=== PATIENT | female | born 1980 | race Caucasian/White ===

== ENCOUNTER 2020-03-11 23:13 | Observation (INO) | payer MEDICAID, SELFPAY ==
[2020-03-11 23:25] VITALS: BP 120/84; PULSE 91; RESP 18; TEMP 36.3; O2SAT 99; BMI 17.7
--- NOTE | 2020-03-11 23:29 | ED_ITS ---
HPI - Abdominal Pain General: Chief Complaint: Urogenital-Female Stated Complaint: bleeding Time Seen by Provider: 03/11/20 23:26 Source: patient Mode of arrival: ambulatory Limitations: no limitations History of Present Illness: HPI narrative: Madeline is a 39-year-old female who comes in complaining of vaginal bleeding after intercourse. She has lower abdominal cramping along with this. Patient states that she had a vaginal hysterectomy approximately 1 year ago. Her right ovary remains but that is all that she has left as far as gynecologic organs. Patient states that she is not had sex in approximately 2 months and had sex with a new boyfriend who is well and out . Patient denies any anal intercourse or instrumentation. Patient states the bleeding was significant and with the pain and nauseousness she felt she should be evaluated. Associated Symptoms: Denies chills, coffee ground emesis, constipation, GI cramping, diarrhea, dysuria, fever(s), heartburn, hematochezia, hematuria, hematemesis, melena, nausea, syncope and vomiting Review of Systems Const: Denies: fever(s), chills, body aches, fatigue, malaise or diaphoresis Eyes: Denies: change in vision, blurry vision, blind spots, photophobia, eye discharge or eye redness ENMT: Denies: throat pain, odynophagia, hoarseness, swelling of lips/tongue, oral sores, ear or mastoid pain, ear discharge, change in hearing or nasal discharge Card: Denies: chest pain, palpitations, irregular heart rhythm, edema, lightheadedness, syncope, pre-syncope, dyspnea on exertion or orthopnea Resp: Denies: dyspnea, productive cough, non-productive cough, wheezing, hemoptysis or chest congestion GI: Denies: abdominal pain, nausea, vomiting, hematemesis, coffee ground emesis, heartburn, diarrhea, constipation, GI cramping, hematochezia or melena : Reports: difficulty voiding and vaginal bleeding; Denies: flank pain, dysuria, urinary frequency, urinary urgency or hematuria Musc: Denies: neck pain, back pain, extremity pain, extremity swelling, joint pain, joint swelling, joint redness, joint warmth or joint stiffness Skin/Breast: Denies: rash, pruritus, erythema, skin tenderness or jaundice Neuro: Denies: headache(s), numbness in extremities, weakness in extremities, sensory changes, lack of coordination, difficulty walking, dizziness, vertigo, confusion, Slurred speech present or seizure-like activity [place]/Lymph: Denies: easy bruising, easy bleeding, petechiae, purpura or enlarged lymph nodes All/Imm: Denies: urticaria, throat swelling, tongue swelling, facial swelling or acute wheezing PFSH ED PFSH: Medical History Chronic back pain Chronic neck pain Surgical History H/O: hysterectomy S/P cholecystectomy Physical Exam Const: COMMON NORMALS: no acute distress, patient oriented x3, no limitations, healthy appearing and well nourished GENERAL APPEARANCE: cooperative, well kempt and well developed HENMT: COMMON NORMALS: normocephalic, atraumatic, external ears normal, EAC's normal and Normal external nose present HEAD & SCALP: normal to inspection, normocephalic and atraumatic FACE & SINUS: normal facial exam and face symmetric NOSE: Normal external nose present and Normal nares present EXTERNAL EAR: Yes external ears normal EXTERNAL AUDITORY CANAL: EAC's normal MOUTH: Normal oral and palatal mucosa present, lip normal and tongue normal Eye: COMMON NORMALS: Equal, round and reactive pupils present and conjunctivae normal GENERAL EYE: appearance normal, both eyes and all related structures ALIGNMENT: Yes alignment normal PERIORBITAL: periorbital findings normal EYELID: eyelids normal CONJUNCTIVA: Yes conjunctivae normal SCLERA: sclerae normal PUPIL: Yes Equal, round and reactive pupils present Neck/C-Spine: COMMON NORMALS: full ROM, no lymphadenopathy, supple, no meningeal signs and no JVD GENERAL: Yes normal visual inspection and Yes trachea midline Chest: COMMONS NORMALS: normal inspection of the chest and normal palpation of entire chest wall Resp: COMMON NORMALS: normal respiratory effort, No retractions and No use of accessory muscles EFFORT & INSPECTION: Yes able to speak in complete sentences and Yes symmetric chest movement AUSCULTATION: no crackles, no rales, no rhonchi and no wheezes Cardio: COMMON NORMALS: no JVD, regular rate, regular rhythm, S1 normal heart sound present and S2 normal heart sound present RATE: regular rate RHYTHM: regular rhythm HEART SOUNDS: S1 normal heart sound present, S2 normal heart sound present, no click, no gallops, no murmurs, no rubs and abnormal split S2 GI: COMMON NORMALS: Soft to palpation and No hepatosplenomegaly present PALPATION: Yes Soft to palpation, No Tenderness to palpation present (GI), No Guarding due to palpation present (GI), No Rigid due to palpation, Yes No hepatosplenomegaly present, Yes Hernia present, No Palpable mass present and No Pulsatile mass present : COMMON NORMALS: Yes no CVA tenderness BLADDER/KIDNEY EXAM: Yes no CVA tenderness EXTERNAL FEMALE EXAM: Yes Hernia present and Yes other (Exam deferred to Dr. Alberto) Back/Pelvis: COMMON NORMALS: no CVA tenderness, thoracic and lumbar spine normal to inspection, no thoracic nor lumbar tenderness and thoraco-lumbar ROM normal Extremity: COMMON NORMALS: normal to inspection, full ROM, capillary refill normal, no joint enlargement, no clubbing, cyanosis or edema and no calf tenderness Neuro: COMMON NORMALS: patient oriented x3, CN's II-XII intact bilaterally, moves all extremities, no focal motor deficits and no sensory deficits noted MENINGEAL SIGNS: Yes no meningeal signs SPEECH: speech normal Psych: COMMON NORMALS: mental status grossly normal, Normal thought process present, cooperative, normal affect, speech normal and activity/motor behavior normal APPEARANCE: Yes well kempt SPEECH: Yes normal speech THOUGHT PROCESS: Normal thought process present Skin: COMMON NORMALS: no rashes or lesions noted, turgor normal, no jaundice, no petechiae and no mottling GENERAL SKIN EXAM: no rashes or lesions noted and turgor normal Course Vital Signs: Vital signs: Vital Signs Temperature 97.4 F L 03/11/20 23:25 Pulse Rate 86 03/12/20 01:03 Respiratory Rate 16 03/12/20 01:14 Blood Pressure 128/78 03/12/20 01:14 Pulse Oximetry 98 03/12/20 01:14 MDM - Abdominal Pain MDM Narrative: Medical decision making narrative: 299 -CT reviewed with Dr. Alberto. He will come to see the patient in the ER. Lab Data: Attestation: I reviewed the patient's lab results. Labs: Lab Results 03/11/20 03/11/20 03/11/20 Range/Units 23:40 23:40 23:40 WBC 26.1 H (4.0-10.0) 10^3/ uL RBC 4.34 (4.1-5.3) 10^6/u L Hgb 13.4 (11.5-15.3) g/dL Hct 40.5 (37.0-47.0) % MCV 93.3 (81-99) fL MCH 30.9 (28.0-34.0) pg MCHC 33.1 (30.0-36.0) g/dL RDW 13.0 (12.1-15.1) % Plt Count 366 (130-400) 10^3/c mm MPV 10.1 (7.4-10.4) fL Neut % (Auto) 80.6 % Lymph % (Auto) 10.7 % [place] % (Auto) 8.0 % Eos % (Auto) 0.1 % Baso % (Auto) 0.3 % Neut # (Auto) 21.06 H (1.8-7.7) 10^3/u L Lymph # (Auto) 2.8 (0.8-4.8) 10^3/u L [place] # (Auto) 2.1 H (0.2-0.9) 10^3/u L Eos # (Auto) 0.0 (0.0-0.8) 10^3/u L Baso # (Auto) 0.1 (0.0-0.1) 10^3/u L Nucleated RBC % (a uto) 0 % Nucleated RBCs # 0.0 /100WBC PT 13.80 H (10.5-13.3) SECO NDS INR 1.03 (0.8-1.2) Sodium 139 (136-145) mmol/L Potassium 3.8 (3.5-5.1) mmol/L Chloride 104 (98-107) mmol/L Carbon Dioxide 23 (22-29) mmol/L Anion Gap 15.8 (5-19) BUN 11 (6-20) mg/dL Creatinine 1.0 H (0.5-0.9) mg/dL GFR Calculation 61.1 L (90-130) mL/min Glucose 122 H (65-115) mg/dL Calculated Osmolal ity 285 (285-295) mOsm/k g Lactic Acid (0.5-2.2) mmol/L Calcium 10.4 (8.5-10.5) mg/dL Total Bilirubin 0.3 (0.15-1.2) mg/dL AST 16 (0-32) U/L ALT 10 (0-33) U/L Alkaline Phosphata se 83 (35-105) IU/L Total Protein 7.3 (6.6-8.7) g/dL Albumin 4.8 (3.5-5.2) g/dL Globulin 2.5 (1.3-4.6) g/dL 03/12/20 Range/Units 00:33 WBC (4.0-10.0) 10^3/ uL RBC (4.1-5.3) 10^6/u L Hgb (11.5-15.3) g/dL Hct (37.0-47.0) % MCV (81-99) fL MCH (28.0-34.0) pg MCHC (30.0-36.0) g/dL RDW (12.1-15.1) % Plt Count (130-400) 10^3/c mm MPV (7.4-10.4) fL Neut % (Auto) % Lymph % (Auto) % [place] % (Auto) % Eos % (Auto) % Baso % (Auto) % Neut # (Auto) (1.8-7.7) 10^3/u L Lymph # (Auto) (0.8-4.8) 10^3/u L [place] # (Auto) (0.2-0.9) 10^3/u L Eos # (Auto) (0.0-0.8) 10^3/u L Baso # (Auto) (0.0-0.1) 10^3/u L Nucleated RBC % (a uto) % Nucleated RBCs # /100WBC PT (10.5-13.3) SECO NDS INR (0.8-1.2) Sodium (136-145) mmol/L Potassium (3.5-5.1) mmol/L Chloride (98-107) mmol/L Carbon Dioxide (22-29) mmol/L Anion Gap (5-19) BUN (6-20) mg/dL Creatinine (0.5-0.9) mg/dL GFR Calculation (90-130) mL/min Glucose (65-115) mg/dL Calculated Osmolal ity (285-295) mOsm/k g Lactic Acid 1.7 (0.5-2.2) mmol/L Calcium (8.5-10.5) mg/dL Total Bilirubin (0.15-1.2) mg/dL AST (0-32) U/L ALT (0-33) U/L Alkaline Phosphata se (35-105) IU/L Total Protein (6.6-8.7) g/dL Albumin (3.5-5.2) g/dL Globulin (1.3-4.6) g/dL Imaging Data ^: CT Abd/Pel: Radiologist's impression: [address] [address] [address] Scan Report Signed Patient: Madeline Arteaga Unit #: [id number] : 1980 Age/Sex: 39 / F ADM Date: 03/11/20 Loc: ER Room/Bed: Attending Dr: Ordering Provider/Ordering MD: Macy Shrestha DO Date of Service: 03/11/20 Procedure(s): CT abdomen pelvis w con* [id number] Accession Number(s): [id number] Report Number: [id number] PROCEDURE INFORMATION: Exam: CT Abdomen And Pelvis With Contrast Exam date and time: 03/11/2020 11:43 PM Age: 39 years old Clinical indication: Abdominal pain; Generalized; Prior surgery; Surgery date: 6+ months; Surgery type: Hysterectomy; Patient HX: PT having vaginal bleeding after intercourse TECHNIQUE: Imaging protocol: Computed tomography of the abdomen and pelvis with intravenous contrast. Radiation optimization: All CT scans at this facility use at least one of these dose optimization techniques: automated exposure control; mA and/or kV adjustment per patient size (includes targeted exams where dose is matched to clinical indication); or iterative reconstruction. Contrast material: OMNI 300; Contrast volume: 75 ml; Contrast route: INTRAVENOUS (IV); COMPARISON: No relevant prior studies available. RADIATION DOSE METRICS: Total DLP (mGy-cm): 473.91 FINDINGS: Liver: Normal. No mass. Gallbladder and bile ducts: Cholecystectomy. Pancreas: Normal. No ductal dilation. Spleen: 2.4 cm splenic lesion has slightly lobulated margins but otherwise appears relatively homogeneous. Adrenals: Normal. No mass. Kidneys and ureters: 8 mm right renal cortical lesion with density of between 50 and 60 Hounsfield units; finding is most likely benign. Stomach and bowel: Unremarkable. No obstruction. No mucosal thickening. Appendix: No evidence of appendicitis. Intraperitoneal space: Unremarkable. No free air. No significant fluid collection. Vasculature: Minimal vascular calcifications are noted. No findings of abdominal aortic aneurysm. Lymph nodes: Unremarkable. No enlarged lymph nodes. Bladder: Minimal urinary bladder gas. Reproductive: Vaginal fullness with intermediate to high density material noted; active hemorrhage difficult to exclude based on a focus of contrast density along right posterior aspect of vagina. Bones/joints: No acute fracture. Soft tissues: Unremarkable. Other findings: Gas and fluid are suggested in the perirectal space and there is some thickening and enhancement of rectal wall. CT/CT abdomen pelvis w con* [id number] IMPRESSION: Abnormal fullness in the vagina which may relate to some hemorrhage/clot; active hemorrhage is a potential consideration along the right posterior aspect of vagina. Gas and fluid/reactive changes in perirectal fat can relate to rectal and or vaginal injury. Minimal bladder gas can be correlated with any urinalysis abnormalities in the absence of any recent instrumentation. Splenic lesion; for patients without history of cancer, recommend follow-up MR in 6-12 months. With history of cancer, recommend evaluation with PET vs. MRI vs. biopsy. THIS REPORT CONTAINS FINDINGS THAT MAY BE CRITICAL TO PATIENT CARE. The findings were verbally communicated via telephone conference with Macy Shrestha at 2:31 AM CDT on 03/12/2020. The findings were acknowledged and understood. COMMENTS: Consistent with the [employer]'s Incidental Findings Committee white paper (J Am Clau Radiol 2018): Any incidental renal lesion less than 1.0 cm or classified as too small to characterize, or any incidental cystic renal lesion characterized as simple-appearing, is likely benign. No follow-up imaging is recommended for these lesions per consensus recommendations based on imaging criteria. Radiation Dose CTDIVOL = (mGy): DLP = 473.91 (mGy-cm) Dictated By: Miguel A Duvall MD Signed By: Miguel A Duvall MD Signed Date/Time: 05/24 DD/ 6 Coding Level of Care Code ED Invertebrate Paleontologist for Chg Fwd Exam Comprehensive
[2020-03-11 23:49] LABS: Basophils # 0.1 10^3/uL (0.0-0.1); Basophils % 0.3 %; Eosinophils % 0.1 %; Hematocrit 40.5 % (37.0-47.0); Hemoglobin 13.4 g/dL (11.5-15.3); Lymphocytes # 2.8 10^3/uL (0.8-4.8); Lymphocytes % 10.7 %; Mean Corpuscular HGB Conc 33.1 g/dL (30.0-36.0); Mean Corpuscular Hemoglobin 30.9 pg (28.0-34.0); Mean Corpuscular Volume 93.3 fL (81-99); Mean Platelet Volume 10.1 fL (7.4-10.4); Monocytes # 2.1 10^3/uL (0.2-0.9); Neutrophils # 21.06 10^3/uL (1.8-7.7); Neutrophils % 80.6 %; Nucleated Red Blood Cells % 0 %; Platelet Count 366 10^3/cmm (130-400); Red Blood Count 4.34 10^6/uL (4.1-5.3); White Blood Count 26.1 10^3/uL (4.0-10.0)
[2020-03-11 23:58] LABS: INR 1.03 (0.8-1.2)
[2020-03-12] VITALS (20 sets, daily range): BP systolic 100–143; BP diastolic 64–90; PULSE 84–107; RESP 15–20; TEMP 36.2–37; O2SAT 94–100; BMI 17.3
[2020-03-12 00:04] LABS: Alanine Aminotransferase 10 U/L (0-33); Albumin Level 4.8 g/dL (3.5-5.2); Alkaline Phosphatase 83 IU/L (35-105); Anion Gap 15.8 (5-19); Aspartate Amino Transferase 16 U/L (0-32); Blood Urea Nitrogen 11 mg/dL (6-20); Calcium 10.4 mg/dL (8.5-10.5); Carbon Dioxide 23 mmol/L (22-29); Chloride 104 mmol/L (98-107); Globulin 2.5 g/dL (1.3-4.6); Glomerular Filtration Rate 61.1 mL/min (90-130); Glucose 122 mg/dL (65-115); Osmolality Calculated 285 mOsm/kg (285-295); Potassium 3.8 mmol/L (3.5-5.1); Sodium 139 mmol/L (136-145); Total Bilirubin 0.3 mg/dL (0.15-1.2); Total Protein 7.3 g/dL (6.6-8.7)
[2020-03-12] MEDS: morphine 4 mg/mL SDV 1 mL IVP (00:32)
[2020-03-12] MEDS: ondansetron 2 mg/ML SDV 2 mL 4 MG IVP (00:33)
[2020-03-12] MEDS: sodium chloride 0.9% 1,000 ML 100 ML IV (00:33)
[2020-03-12] MEDS: piperacillin-tazobactam 3.375 GM in sodium chloride 0.9% (plus) 50 ML IV (00:34)
[2020-03-12 00:55] LABS: Lactic Sepsis W/Reflex 1.7 mmol/L (0.5-2.2)
[2020-03-12] MEDS: iohexol 300 mg/mL 100 mL Btl IV (00:55)
--- NOTE | 2020-03-12 04:05 | P.PN_ITS ---
Subjective Subjective: Interval history: vaginal bleeding after sex. Vitals/I&O/Wt Last Vital Signs Temp 97.4 F L 03/11/20 23:25 Pulse 86 03/12/20 01:03 Resp 18 03/12/20 03:20 BP 128/87 03/12/20 03:20 Pulse Ox 98 03/12/20 01:14 Weight last 48 hrs Weight 43.998 kg Physical Exam HENMT: COMMON NORMALS: normocephalic and atraumatic HEAD & SCALP: normocephalic and atraumatic Neck/C-Spine: COMMON NORMALS: full ROM and no JVD GENERAL: Yes normal visual inspection Chest: CHEST: Yes Symmetrical chest wall rise Resp: COMMON NORMALS: normal respiratory effort and No retractions Cardio: COMMON NORMALS: no JVD, regular rate and regular rhythm RATE: regular rate RHYTHM: regular rhythm GI: COMMON NORMALS: Normal to inspection, nondistended, normoactive bowel sounds present and non-tender : COMMON NORMALS: Yes no CVA tenderness BLADDER/KIDNEY EXAM: Yes no CVA tenderness EXTERNAL FEMALE EXAM: Yes normal appearance of the urethra and No lesion SPECULUM EXAM - VAGINA: Yes vagina atrophic, Yes lesion other (cuff laceration) and Yes vaginal bleeding SPECULUM EXAM - CERVIX: Yes Cervix absent BIMANUAL EXAM - VAGINA & UTERUS: Yes uterus absent BIMANUAL EXAM - ADNEXA, OTHER: Yes normal adnexae OB/EXTERNAL & SPECULUM: vaginal bleeding Back/Pelvis: COMMON NORMALS: no CVA tenderness Extremity: COMMON NORMALS: full ROM; negative for no clubbing, cyanosis or edema and negative for no calf tenderness Data : 03/11/20 23:40 03/11/20 23:40 Micro: Microbiology 03/12/20 00:33 Blood Culture - Preliminary Blood SPECIMEN COLLECTED 03/12/20 00:31 Blood Culture - Preliminary Blood SPECIMEN COLLECTED A&P Assessment and plan (1) Vaginal laceration: Status: Acute Qualifiers: Vaginal laceration type: non-obstetric Perineal laceration presence: without perineal laceration Encounter type: initial encounter Foreign body presence: without foreign body Qualified Code(s): S31.41XA - Laceration without foreign body of vagina and vulva, initial encounter Additional A&P Information Patient is a 39-year-old female post hysterectomy a year ago. Came to the ER referring vaginal bleeding after intercourse. She refers she had not been sexually active for several months. This was the first time with this new partner. She refers she started bleeding shortly after intercourse. Examination of the vaginal laceration noticed at the cuff. She was counseled regarding findings. Vaginal laceration repair required. [facility] Patient was counseled regarding the repair she agree and consent to the procedure. 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
--- NOTE | 2020-03-12 05:28 | P.ANESASSM_ITS ---
Pre-Anesthetic Assessment Pre-Anesthetic Assessment: Height/Weight: Height 1.57 m Weight 43.998 kg Temp Pulse Resp BP Pulse Ox 97.4 F L 86 18 128/87 98 03/11/20 23:25 03/12/20 01:03 03/12/20 03:20 03/12/20 03:20 03/12/20 01:14 Preop Diagnosis: vaginal laceration Proposed Procedure: Operation Date: 03/12/20 05:55 Proposed Procedures p Vaginal Laceration Repair(Not Applicable) - Hussein Alberto MD Was Beta Fabiola taken within 24 hours: N/A Social: Social History: Tobacco and No alcohol Exam: Pre-Anes Outpt Exam: alert, oriented x 3, clear to auscultation bilaterally and regular rate & rhythm Airway: Submandibular: WNL Cervical ROM: WNL MP: 2 Dentition: False History/ROS: No significant history except as noted and No significant complaints Pulmonary: Pulmonary: None reported CV/HEM: CV/HEM: None reported : : None reported Hepatic: Hepatic: None reported GI: GI: None reported Metabolic: Metabolic: None reported Musc/skel: Musc/skel: None reported Neuropsych: Neuropsych: None reported Anesthetic Plan: ASA status: 2E Anesthesia: Anesthesia Evaluation and General Risk of > 500 ml blood loss (7ml/kg in children): No Meds/Allergies Current Medications: Current Medications Generic Name Dose Route Start Last Admin Trade Name Freq PRN Reason Stop Dose Admin Sodium Chloride 1,000 mls @ 100 m ls/hr 03/11/20 23:30 03/12/20 00:33 Sodium Chloride 0.9% IV 100 mls/hr .Q10H CARYL Administration PFSH Anesthesia PFSH: Medical History Chronic back pain Chronic neck pain Surgical History H/O: hysterectomy S/P cholecystectomy Data Anesthesia CBC & Chem 7: 03/11/20 23:40 03/11/20 23:40 Other Labs: Laboratory Results - last 48 hr 03/11/20 03/11/20 03/11/20 23:40 23:40 23:40 WBC 26.1 H RBC 4.34 Hgb 13.4 Hct 40.5 MCV 93.3 MCH 30.9 MCHC 33.1 RDW 13.0 Plt Count 366 MPV 10.1 Neut % (Auto) 80.6 Lymph % (Auto) 10.7 [place] % (Auto) 8.0 Eos % (Auto) 0.1 Baso % (Auto) 0.3 Neut # (Auto) 21.06 H Lymph # (Auto) 2.8 [place] # (Auto) 2.1 H Eos # (Auto) 0.0 Baso # (Auto) 0.1 Nucleated RBC % (auto) 0 Nucleated RBCs # 0.0 PT 13.80 H INR 1.03 Sodium 139 Potassium 3.8 Chloride 104 Carbon Dioxide 23 Anion Gap 15.8 BUN 11 Creatinine 1.0 H GFR Calculation 61.1 L Glucose 122 H Calculated Osmolality 285 Lactic Acid Calcium 10.4 Total Bilirubin 0.3 AST 16 ALT 10 Alkaline Phosphatase 83 Total Protein 7.3 Albumin 4.8 Globulin 2.5 03/12/20 00:33 WBC RBC Hgb Hct MCV MCH MCHC RDW Plt Count MPV Neut % (Auto) Lymph % (Auto) [place] % (Auto) Eos % (Auto) Baso % (Auto) Neut # (Auto) Lymph # (Auto) [place] # (Auto) Eos # (Auto) Baso # (Auto) Nucleated RBC % (auto) Nucleated RBCs # PT INR Sodium Potassium Chloride Carbon Dioxide Anion Gap BUN Creatinine GFR Calculation Glucose Calculated Osmolality Lactic Acid 1.7 Calcium Total Bilirubin AST ALT Alkaline Phosphatase Total Protein Albumin Globulin Micro: Microbiology 03/12/20 00:33 Blood Culture - Preliminary Blood SPECIMEN COLLECTED 03/12/20 00:31 Blood Culture - Preliminary Blood SPECIMEN COLLECTED Cardiac Studies: No Data to Display
--- NOTE | 2020-03-12 06:48 | PM.OP ---
Operative Report Date of procedure: March 12, 2020 Pre-op Diagnosis: vaginal laceration Post-op diagnosis: same Procedure Done: Vaginal laceration repair Surgeon: Hussein Alberto Anesthesia: General Estimated blood loss (mL): 10 IV fluids (mL): 500 Urine output (mL): 100 Condition: stable Disposition: PACU Brief History: 39 y/o female post hysterectomy one year ago, came to ER with vaginal bleeding after intercourse. Procedure: After obtaining informed consent, the patient was taken to the operating room and placed in the supine position, given general anesthesia, and prepped and draped in sterile fashion. The abdomen, vulva and vagina were prepped and draped in a sterile manner. A time out procedure was performed. The bladder was emptied with a red Ze catheter. An open sided speculum was placed in the vagina. Clean cut vaginal laceration was visualized at the vaginal cuff. The laceration was repaired with 2-O Vicryl in a running locked fashion. Sponge, lap, needle, and instrument counts were correct times three. The patient was taken to the recovery room, awake and in stable condition.
[2020-03-12] MEDS: HYDROcodone-acetaminophen 5-325 mg Tablet PO ×2 (08:06→13:19)
--- NOTE | 2020-03-12 09:15 | P.DS_ITS ---
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 Date of Admission: 03/12/20 07:15 Date of Discharge: 03/12/20 Attending Provider at Admission: Hussein Alberto MD Attending Provider at Discharge: Hussein Alberto MD Diagnoses at Discharge Discharge Diagnosis (1) Vaginal laceration: Status: Acute Qualifiers: Encounter type: initial encounter Foreign body presence: without foreign body Perineal laceration presence: without perineal laceration Vaginal laceration type: non-obstetric Qualified Code(s): S31.41XA - Laceration without foreign body of vagina and vulva, initial encounter Reason for Visit Reason for Visit: bleeding Hospital Course Hospital Course: 39-year-old female an to the emergency room with a chief complaint of vaginal bleeding after intercourse. She is Status post vaginal hysterectomy a year ago. On examination of vaginal laceration was noted. The patient was taken to the OR urgently for vaginal laceration repair and control vaginal bleeding. The procedure was performed without complications. Postprocedure observation was uneventful, she is afebrile and hemodynamically stable. Lenka diet well. Ambulating without difficulty. Physical Exam Narrative: EXAM NARRATIVE: GA: Alert and oriented ?3. HEENT: WNL. Heart: Regular rate and rhythm. Lungs: Clear to auscultation bilaterally. Abdomen: Bowel sounds present, nontender, minimal tenderness, incision clean and dry, no redness, pain or edema. 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 Extremities: No edema, no cyanosis, no calves pain. Urinary Catheter Management^: Andrews: Cath Placed During This Visit: no Discharge Data Data Completed and Pending: Completed Studies During Hospitalization Category Date Time Status CT abdomen pelvis w con* [id number] Stat Cat Scan 03/11/20 23:29 Completed Pending at discharge Category Date Time Status Blood Culture Sta t Lab 03/12/20 00:33 Results Hemagram Timed Lab 03/13/20 05:00 Uncollected Labs from last 24 hours 03/12/20 03/11/20 03/11/20 00:33 23:40 23:40 WBC RBC Hgb Hct MCV MCH MCHC RDW Plt Count MPV Neut % (Auto) Lymph % (Auto) [place] % (Auto) Eos % (Auto) Baso % (Auto) Neut # (Auto) Lymph # (Auto) [place] # (Auto) Eos # (Auto) Baso # (Auto) Nucleated RBC % (a uto) Nucleated RBCs # PT 13.80 H INR 1.03 Sodium 139 Potassium 3.8 Chloride 104 Carbon Dioxide 23 Anion Gap 15.8 BUN 11 Creatinine 1.0 H GFR Calculation 61.1 L Glucose 122 H Calculated Osmolal ity 285 Lactic Acid 1.7 Calcium 10.4 Total Bilirubin 0.3 AST 16 ALT 10 Alkaline Phosphata se 83 Total Protein 7.3 Albumin 4.8 Globulin 2.5 03/11/20 23:40 WBC 26.1 H RBC 4.34 Hgb 13.4 Hct 40.5 MCV 93.3 MCH 30.9 MCHC 33.1 RDW 13.0 Plt Count 366 MPV 10.1 Neut % (Auto) 80.6 Lymph % (Auto) 10.7 [place] % (Auto) 8.0 Eos % (Auto) 0.1 Baso % (Auto) 0.3 Neut # (Auto) 21.06 H Lymph # (Auto) 2.8 [place] # (Auto) 2.1 H Eos # (Auto) 0.0 Baso # (Auto) 0.1 Nucleated RBC % (a uto) 0 Nucleated RBCs # 0.0 PT INR Sodium Potassium Chloride Carbon Dioxide Anion Gap BUN Creatinine GFR Calculation Glucose Calculated Osmolal ity Lactic Acid Calcium Total Bilirubin AST ALT Alkaline Phosphata se Total Protein Albumin Globulin Vitals: Last Vital Signs Temp 98.4 F 03/12/20 07:30 Pulse 87 03/12/20 08:30 Resp 18 03/12/20 08:15 BP 114/74 03/12/20 08:30 Pulse Ox 94 03/12/20 07:15 Discharge Plan Discharge Patient Disposition: Home, Self-Care Condition: Stable Prescriptions: New ibuprofen 800 mg tablet 800 mg PO TID PRN (Reason: pain) Qty: 60 RF: 0 Discharge Orders: Discharge Order (Routine); Ordered 03/12/20 Ordered By: Hussein Alberto Referrals: Hussein Alberto MD [Physician] - 2 weeks Discharge Diet: As Directed Discharge Activity: Increase activity as tolerated Patient Instructions: Posterior Vaginal Repair (DC) Activity Restrictions/Additional Instructions: Pelvic rest for 6 weeks (no sex, no tampons, no vaginal douches). Return to the emergency room if any fever, increased bleeding or pain. 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
[2020-03-12 11:56] LABS: Hematocrit 27.6 % (37.0-47.0); Hemoglobin 9.1 g/dL (11.5-15.3); Mean Corpuscular Hemoglobin 31.6 pg (28.0-34.0); Mean Corpuscular Volume 95.8 fL (81-99); Mean Platelet Volume 10.7 fL (7.4-10.4); Platelet Count 271 10^3/cmm (130-400); Red Blood Count 2.88 10^6/uL (4.1-5.3); Red Cell Distribution Width 13.2 % (12.1-15.1); White Blood Count 18.9 10^3/uL (4.0-10.0)
== END 2020-03-12 13:30 | disposition home or self-care (01) ==
LOC: ER 23:26 → OR 03-12 03:55 → OBGYN 03-12 07:15
PROVIDERS: Emergency Medicine; Admitting Provider Obstetrics & Gynecology; Visit Provider Obstetrics & Gynecology
PROC: 0UQG0ZZ Repair Vagina, Open Approach (ICD-10-PCS; CPT 57200; principal; 2020-03-12 05:45)
DX: S31.41XA Laceration without foreign body of vagina and vulva, initial encounter (principal); X58.XXXA Exposure to other specified factors, initial encounter
CPT/HCPCS: 57200; 12345; 36415; 74177; 80053; 83605; 85025; 85027; 85610; 87040; 96365; 96366; 96375; 99283; 99285; E0352; G0378; J1100; J2270; J2405; J2543; J2704; J3010; J3490; J7030; Q9967